=== PATIENT | male | born 1990 | race Caucasian/White ===

== ENCOUNTER 2019-09-02 09:07 | Emergency (ER) | payer OTHER ==
[~2019-09-02] VITALS: Ht 185.4 cm; Wt 74.0 kg
[2019-09-02 09:51] LABS: BASOPHILS % (AUTO) 0 % (0-1); EOSINOPHILS # (AUTO) 0.04 x10^3/uL (0-0.4); EOSINOPHILS % (AUTO) 0 % (1-7); LYMPHOCYTES % (AUTO) 16 % (22-44); MD NO; MEAN CORPUSCULAR HEMOGLOBIN 31.6 pg (27.5-34.5); MEAN CORPUSCULAR HGB CONC 33.9 g/dL (33.2-36.2); MEAN CORPUSCULAR VOLUME 93.1 fL (81-97); MEAN PLATELET VOLUME 7.9 fL (7.4-10.4); MONOCYTES # (AUTO) 0.79 x10^3/uL (0.2-0.8); MONOCYTES % (AUTO) 9 % (2-9); NEUTROPHILS # (AUTO) 6.78 x10^3/uL (1.8-6.8); NEUTROPHILS % (AUTO) 75 % (42-75); PLATELET COUNT 273 x10^3/uL (130-400); RED BLOOD COUNT 4.94 x10^6/uL (4.38-5.82); RED CELL DISTRIBUTION WIDTH 12.9 % (9.4-14.8)
[2019-09-02 10:03] LABS: ALANINE AMINOTRANSFERASE 31 U/L (12-78); ALBUMIN 4.3 g/dL (3.4-5.0); ANION GAP 8 mmol/L (5-15); CALCIUM 9.3 mg/dL (8.5-10.1); CHLORIDE 103 mmol/L (98-107); CREATININE 1.16 mg/dL (0.7-1.3)
[2019-09-02 10:05] LABS: ALKALINE PHOSPHATASE 53 U/L (45-117); BILIRUBIN,TOTAL 0.7 mg/dL (0.2-1.0); TOTAL PROTEIN 7.7 g/dL (6.4-8.2)
--- NOTE | 2019-09-02 11:10 | NUR ---
PT BIB P/V FOR ABD PAIN, CONSTIPATION AFTER BEING SEEN ON FRIDAY AT [facility] FOR SAME. PT HAD CT AND XRAY WHICH WERE NEGATIVE. PT REPORTS LOOSE STOOL YESTERDAY AND NORMAL STOOL 2 DAYS AGO. PT TOOK EX LAX LAST NOC. CHART UP FOR MD. ASSUMED CARE OF PT 10 MINUTES AGO.
[2019-09-02] MEDS ORDERED: OMEP-110 PO (11:21)
[2019-09-02 11:49] LABS: MICROSCOPIC AUTO
[2019-09-02 11:53] LABS: CULTURE INDICATED? NO
[2019-09-02 12:02] VITALS: BP 139/81
--- NOTE | 2019-09-02 12:35 | NUR ---
1202 LATE ENTRY: PT RESTING ON DENISE. NADN. FRANKLIN. AWAITING X RAY.
--- NOTE | 2019-09-02 13:11 | NUR ---
PT UP FOR RECHECK AT 1300 Addendum: 09/02/19 at 1311 by GAY PT AWARE
== END 2019-09-02 14:06 | disposition home or self-care (01) ==
LOC: ED 12:48
DX: R10.30 Lower abdominal pain, unspecified (principal)
CPT/HCPCS: 36415; 74021; 80053; 81001; 83690; 85025; 99284